=== PATIENT | female | born 1985 | race Caucasian/White ===

== ENCOUNTER 2017-01-12 08:29 | Inpatient (IN) | payer OTHER ==
[~2017-01-12] VITALS: Ht 172.7 cm; Wt 91.2 kg
[2017-01-12] MEDS ORDERED: PRENATABS RX T1 EACH PO (09:12)
[2017-01-12 10:02] LABS: ABSOLUTE BASOPHIL COUNT 0 /CUMM (0.0-0.2); ABSOLUTE EOSINOPHIL COUNT 0 /CUMM (0.0-0.7); ABSOLUTE GRANULOCYTE CT 7.2 /CUMM (1.4-6.5); ABSOLUTE LYMPH COUNT 1.6 /CUMM (1.2-3.4); ABSOLUTE MONOCYTE COUNT 0.5 /CUMM (0.10-0.60); BASOPHIL % 0.3 % (0.0-2.0); EOSINOPHIL % 0.4 % (0-5); GRANULOCYTE % 76.6 % (42.2-75.2); HEMATOCRIT 33.7 % (37-47); MEAN CORPUSCULAR HGB 25.5 PG (27.0-31.0); MEAN CORPUSCULAR HGB CONC 32.8 G/DL (33.0-37.0); MEAN CORPUSCULAR VOLUME 77.7 FL (81.0-99.0); PLATELET COUNT 274 /CUMM (130-400); RED BLOOD CELL CT 4.33 /CUMM (4.20-5.40); WHITE BLOOD CELL COUNT 9.4 /CUMM (4.8-10.8)
--- NOTE | 2017-01-12 10:50 | History & Physical ---
General Information and HPI MD Statement: I have seen and personally examined LYNN BURK and documented this H&P. The patient is a 31 year old female at [41] weeks and [1] days gestation who presented with a chief complaint of [IOL for postdate]. Source of Information: patient Exam Limitations: no limitations History of Present Illness: 31-year-old G1 para 0, at 41 weeks 1 day intrauterine , patient is here for induction of labor due to postdates. Patient denies contractions, vaginal bleeding or leakage of fluid. Patient reports good movement. care started at 8 weeks 1 day, uncomplicated thus far. GBS negative. 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 Home Who Do You Live With? spouse Smoking Status: Never Smoked ETOH Use: denies use Illicit Drug Use: denies illicit drug use Review of Systems Review of Systems Constitutional: Reports: no symptoms. EENTM: Reports: no symptoms. Cardiovascular: Reports: no symptoms. Respiratory: Reports: no symptoms. GI: Reports: no symptoms. Genitourinary: Reports: see HPI. Musculoskeletal: Reports: no symptoms. Skin: Reports: no symptoms. Neurological/Psychological: Reports: no symptoms. Hematologic/Endocrine: Reports: no symptoms. Immunologic/Allergic: Reports: no symptoms. All Other Systems: Reviewed and Negative Date of LMP: 04/01/16 Post Menopausal: No Exam & Diagnostic Data Last 24 Hrs of Vital Signs/I&O Intake & Output 01/12 1600 06/29 0800 01/12 0000 Intake Total Output Total Balance Patient 91.172 kg Weight Obstetric Exam Wgt Gained During : Adequate Pelvimetry: Adequate Dilation (cm): 0 Effacement (%): 50 Station: -2 Membranes: intact Fluid: unknown Fundal Height (cm): 40 Multiple Gestation? No Contractions: None #1 - FHR Baseline: 130 Category: 1 Estimated Weight: 3200 g Presentation: Vertex Patient for Induction? Yes Garcia Score Garcia Score Response Value Cervix Position: posterior 0 Cervix Consistency: medium 1 Cervix Effacement: 30-50% 1 Cervix Dilation: closed 0 Cervix Station: -2 1 Total 3 Physical Exam: VSS General: NAD abdomen: gravid, soft, nontender Ext: DCT (-) Labs Blood Type & Rh: A(+) Antibody Screen: Negative Hct/Hgb & Platelets #1: 13.1/38.7%,PLT [id number] Hct/Hgb & Platelets #2: 11.9/38.4%,[id number] Rubella: immune VDRL #1: Negative VDRL #2: Negative HbsAg: Negative HIV #1: Negative HIV #2 Negative 1 Hr P Group B Strep: Negative Initial Ultrasound: IUP at 8 wks Anatomy Ultrasound: normal Genetic Testing: normal Last 24 Hrs of Labs/Jason: Laboratory Tests 01/12/17 0858: CBC w Diff NO MAN DIFF REQ, RBC 4.33, MCV 77.7 L, MCH 25.5 L, RDW 15.0 H, MPV 9.0, Gran % 76.6 H, Lymphocytes % 17.0 L, Monocytes % 5.7, Eosinophils % 0.4, Basophils % 0.3, Absolute Granulocytes 7.2 H, Absolute Lymphocytes 1.6, Absolute Monocytes 0.5, Absolute Eosinophils 0, Absolute Basophils 0, PUBS MCHC 32.8 L 01/12/17 0845: Urine Color STRAW, Urine Clarity CLEAR, Urine pH 6.5, Ur Specific Chalmers <= 1.005, Urine Protein NEG, Urine Ketones NEG, Urine Nitrite NEG, Urine Bilirubin NEG, Urine Urobilinogen 0.2, Ur Leukocyte Esterase NEG, Ur Microscopic EXAM NOT REQUIRED, Urine Hemoglobin NEG, Urine Glucose NEG Assessment/Plan Assessment/Plan: 31 year old, G1 para 0, 41 weeks 1 day intrauterine , induction of labor 1. Admit patient, admission labs 2. method of IOL d/w pt, R/B/A of cervical ripening with misoprostol d/w pt, she understand and agreed. all questions answered, informed consent obtained. 1 st dose cytotec placed at 9:30AM 3. will monitor closely As Ranked By This Provider Problem List: 1. 2. Post-dates Core Measures/Miscellaneous Venous Thromboembolism VTE Risk Factors: / VTE Contraindications: No Contraindications VTE Diagnosis: No Beta Roxie Is Beta Roxie a Home Med? No Antibiotics Is Patient on Antibiotics? No Attending MD Review Statement Attending Statement Attending MD Statement: examined this patient, discussed with family, discussed w/nursing
--- NOTE | 2017-01-12 14:38 | PN- OBGYN ---
Surgical Brief Attending Note Brief Attending Note: pt has no complaints, she recieved 1 dose of cytotec at 9:30AM, on TOCO: no ctxs, FHR cat.I cervix 0/50%/-2,unchanged from before 2nd dose of cytotec inserted in sterile fashion. will monitor closely
--- NOTE | 2017-01-13 18:13 | PN- OBGYN ---
Surgical Brief Attending Note Brief Attending Note: about 1 hour after epidural placement pt began having syncopal episode with Bp 90/0 and thready pulse rx with eplidrine 1cc, O2 and fluid bolus anasthesia called pt and fetus recovered
--- NOTE | 2017-01-13 20:48 | Labor & Delivery Summary ---
Delivery Summary Vaginal Delivery: Vaginal: spontaneous Episiotomy/Lacerations: Episiotomy/Lacerations: PARTIAL 3 DEGREE REPAIRED WITH 0 VICRAL AND 3-0 VICRAL Placenta: Placenta: spontanteous, normal, 3 vessel Anesthesia: block Apgars - 1 Min: 9 Apgars - 5 Min: 9 Additional Comments: PARTIAL AVULSION OF ANAL VERGE FROM 12;00TO8;00 ON PTS RIGHT REPAIR WITH 3-0 DEXON ONLY SLIGHT INTIRUPTION OS SPHINCTER AT 9;0 REPAIR WITH 0 POLYSORB
[2017-01-14 09:25] LABS: ABSOLUTE BASOPHIL COUNT 0.1 /CUMM (0.0-0.2); ABSOLUTE EOSINOPHIL COUNT 0 /CUMM (0.0-0.7); ABSOLUTE GRANULOCYTE CT 14.4 /CUMM (1.4-6.5); ABSOLUTE LYMPH COUNT 1.8 /CUMM (1.2-3.4); ABSOLUTE MONOCYTE COUNT 1.2 /CUMM (0.10-0.60); BASOPHIL % 0.3 % (0.0-2.0); EOSINOPHIL % 0 % (0-5); GRANULOCYTE % 82.5 % (42.2-75.2); HEMATOCRIT 29.1 % (37-47); MEAN CORPUSCULAR HGB 25.7 PG (27.0-31.0); MEAN CORPUSCULAR HGB CONC 32.8 G/DL (33.0-37.0); MEAN CORPUSCULAR VOLUME 78.4 FL (81.0-99.0); MEAN PLATELET VOLUME 8.8 FL (7.4-10.4); PLATELET COUNT 239 /CUMM (130-400); RBC DISTRIBUTION WIDTH 14.7 % (11.5-14.5); RED BLOOD CELL CT 3.72 /CUMM (4.20-5.40)
[2017-01-14 09:47] LABS: WHITE BLOOD CELL COUNT 17.4 /CUMM (4.8-10.8)
--- NOTE | 2017-01-14 11:31 | PN- Post Delivery/GYN ---
Subjective Subjective: feeling well Review of Systems Constitutional: Reports: no symptoms. Denies: chills, fever. EENTM: Denies: blurred vision, double vision. Cardiovascular: Denies: chest pain. Respiratory: Denies: cough, short of breath. Gastrointestinal: Denies: nausea, vomiting. Genitourinary: Denies: dysuria. Neurological/Psychological: Denies: anxiety, depressed. Objective Last 24 Hrs of Vital Signs/I&O vss Physical Exam General Appearance Alert, Oriented X3, Cooperative, No Acute Distress Cardiovascular Regular Rate Lungs Clear to Auscultation Abdomen Soft, fundus firm Extremities 1+edema Pelvic (FEMALE) lochia serosanganous Current Medications: Current Medications Sig/Isela Start time Last Medication Dose Route Stop Time Status Admin Chloroprocaine HCl 30 ML ONCE ONE 01/13 2045 DC 01/13 SC 01/13 Docusate Sodium 100 MG .STK-MED ONE 01/14 0027 DC PO 01/14 0028 Docusate Sodium 100 MG BID PRN 01/13 2045 AC 01/14 PO 0028 Hydroxyzine HCl 50 MG AT BEDTIME NEED.. 01/13 2045 AC PO Ibuprofen 800 MG Q6P PRN 01/13 2045 AC 01/14 PO 0937 Lactated Ringer's 1,000 ML Q8H 01/12 0915 DC 01/12 IV 0850 Magnesium Hydroxide 30 ML DAILY PRN 01/13 2045 AC PO Methylergonovine 0.2 MG STAT STA 01/14 2040 DC Maleate IM 01/13 2041 Misoprostol 25 MCG Q4 HRS NEEDED PRN 01/12 1000 DC 01/12 VAG 1428 Oxycodone/ 1 TAB Q3P PRN 01/13 2045 AC 01/14 Acetaminophen PO 0028 Oxytocin 20 UNITS Q5H 01/13 2045 DC Lactated Ringer's 1,000 ML IV 01/14 0144 Oxytocin 30 UNITS PER PROTOCL 01/13 1000 DC Lactated Ringer's 500 ML IV 01/13 1800 Last 24 Hrs of Labs/Jason: Laboratory Tests 01/14/17 0736: CBC w Diff NO MAN DIFF REQ, RBC 3.72 L, MCV 78.4 L, MCH 25.7 L, RDW 14.7 H, MPV 8.8, Gran % 82.5 H, Lymphocytes % 10.5 L, Monocytes % 6.7, Eosinophils % 0 , Basophils % 0.3, Absolute Granulocytes 14.4 H, Absolute Lymphocytes 1.8, Absolute Monocytes 1.2 H, Absolute Eosinophils 0, Absolute Basophils 0.1, PUBS MCHC 32.8 L Microbiology 01/13 1730 URINE ROUT: Urine Culture - RES Assessment/Plan Assessment/Plan ppd #1 vss afebrile will avoid constioation and diarrhea Problem List: 1. Post-dates Attending MD Review Statement Attending Statement Attending MD Statement: examined this patient, discussed with family, discussed with nursing
[2017-01-15] MEDS ORDERED: DOCUSATE SODIU100 M3 PO (11:03)
[2017-01-15] MEDS ORDERED: IBUPROFEN800 M1 PO (11:03)
--- NOTE | 2017-01-15 11:12 | PN- Post Delivery/GYN ---
Subjective Subjective: feeling well Review of Systems Constitutional: Denies: chills, fever. EENTM: Denies: blurred vision, double vision, visual changes. Respiratory: Denies: cough, short of breath. Gastrointestinal: Denies: diarrhea, nausea, vomiting. Genitourinary: Denies: dysuria. Neurological/Psychological: Denies: anxiety, depressed. Objective Last 24 Hrs of Vital Signs/I&O vss Physical Exam General Appearance Alert, Oriented X3, Cooperative, No Acute Distress Cardiovascular Regular Rate Lungs Clear to Auscultation Abdomen Soft, fundus firm Neurological Normal Gait, Normal Speech Pelvic (FEMALE) lochia serosanganous Current Medications: Current Medications Sig/Isela Start time Last Medication Dose Route Stop Time Status Admin Acetaminophen 650 MG Q4P PRN 01/14 2230 AC 01/14 PO 223 Docusate Sodium 100 MG .STK-MED ONE 01/14 2055 DC PO 01/15 2056 Docusate Sodium 100 MG BID PRN 01/13 2045 AC 01/14 PO 222 Hydroxyzine HCl 50 MG AT BEDTIME NEED.. 01/13 2045 AC PO Ibuprofen 800 MG .STK-MED ONE 01/15 0029 DC PO 01/15 0030 Ibuprofen 800 MG .STK-MED ONE 01/14 1813 DC PO 01/14 1814 Ibuprofen 800 MG Q6P PRN 01/13 2045 AC 01/15 PO 0645 Magnesium Hydroxide 30 ML DAILY PRN 01/13 2045 AC PO Oxycodone/ 1 TAB Q3P PRN 01/13 2045 AC 01/14 Acetaminophen PO 0028 Assessment/Plan Assessment/Plan ppd #2 vss afebrile plan d/c home Problem List: 1. Post-dates Attending MD Review Statement Attending Statement Attending MD Statement: examined this patient, discussed with family, discussed with nursing
== END 2017-01-15 15:30 | DRG 542 ==
LOC: GNO 08:29
PROVIDERS: Obstetrics & Gynecology; ADMIT Obstetrics & Gynecology
PROC: 0DQR0ZZ Repair Anal Sphincter, Open Approach (ICD-10-PCS; principal; 2017-01-13)
PROC: 10E0XZZ Delivery of Products of Conception, External Approach (ICD-10-PCS; 2017-01-13)
PROC: 3E0P7GC Introduction of Other Therapeutic Substance into Female Reproductive, Via Natural or Artificial Opening (ICD-10-PCS; 2017-01-13)
DX: O70.21 Third degree perineal laceration during delivery, IIIa (principal); O48.0 Post-term pregnancy; Z3A.41 41 weeks gestation of pregnancy; Z37.0 Single live birth; O75.89 Other specified complications of labor and delivery; R55 Syncope and collapse
CPT/HCPCS: GNOP; 81003; 87086; J7120